=== PATIENT | female | born 1940 | race Caucasian/White ===

== ENCOUNTER 2018-06-16 14:41 | Emergency (ER) | payer OTHER ==
[2018-06-16] MEDS ORDERED: AMLODIPINE 5 MG TAB ONE (15:24)
[2018-06-16] MEDS ORDERED: DIAZEPAM 2 MG TABLET ONE (15:24)
[2018-06-16] MEDS ORDERED: OXYMETAZOLINE HCL 0.05% 15ML NAS ONE (15:30)
[2018-06-16 15:37] LABS: Hematocrit 41.3 % (36.0-45.0); MCH 29.9 pg (27.0-35.0); MCV 88.6 fL (80-100); MPV 8.3 fL (7.6-11.3); Protime INR 1.07; RBC Red Blood Cell Count 4.66 M/uL (3.86-4.86)
[2018-06-16] MEDS ORDERED: LIDOCAINE VISCOUS 2% SOLN 15 ML UDC ONE (15:58)
--- NOTE | 2018-06-16 16:53 | ER ---
Nurse's Notes [facility] Name: Angeline Méndez Age: 78 yrs Sex: Female : 1940 Arrival Date: 06/16/2018 Time: 14:44 Bed 16 Private MD: Andriy Harrison Diagnosis: Epistaxis Presentation: 06/16 14:45 Presenting complaint: Patient states: Reports nose bleeding from right side since 1100 jl7 yesterday. Went to the [facility] ER at 0100 this morning and was dischared after putting some coagulant up there, it started bleeding again about an hour ago and hasn't stopped. Transition of care: patient was not received from another setting of care. Onset of symptoms was June 16, 2018 at 13:30. Risk Assessment: Do you want to hurt yourself or someone else? Patient reports no desire to harm self or others. Initial Sepsis Screen: Does the patient meet any 2 criteria? No. Patient's initial sepsis screen is negative. Does the patient have a suspected source of infection? No. Patient's initial sepsis screen is negative. Care prior to arrival: None. 14:45 Method Of Arrival: Ambulatory [facility] 14:45 Acuity: ROBERT 3 jl7 Triage Assessment: 14:49 General: Appears in no apparent distress. uncomfortable, Behavior is cooperative, jl7 anxious. Pain: Complains of pain in right nostril Pain currently is 1 out of 10 on a pain scale. Quality of pain is described as burning. EENT: Nares with bleeding noted on right. Neuro: Level of Consciousness is awake, alert, obeys commands, Oriented to person, place, time, situation. Cardiovascular: Patient's skin is warm and dry. Respiratory: Airway is patent Respiratory effort is even, unlabored, Respiratory pattern is regular, symmetrical. Derm: Skin is pink, warm \T\ dry. 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 - Social history:: Smoking status: Patient uses tobacco products, smokes one pack cigarettes per day. Patient/guardian denies using alcohol, street drugs, The patient lives with family. - Ebola Screening: : No symptoms or risks identified at this time. - Family history:: not pertinent, pertinent for. - Hospitalizations: : No recent hospitalization is reported. Screenin:49 Abuse screen: Denies threats or abuse. Nutritional screening: No deficits noted. ls4 Tuberculosis screening: No symptoms or risk factors identified. Fall Risk No fall in past 12 months (0 pts). Secondary diagnosis (15 points) impaired mobility, No IV (0 pts). Ambulatory Aid-. Assessment: 14:01 General: Appears distressed, uncomfortable, slender, Behavior is agitated, anxious, ls4 fussy. 14:01 Pain: Denies pain. Neuro: No deficits noted. Cardiovascular: Denies chest pain, ls4 diaphoresis, fatigue, lightheadedness, nausea. Respiratory: Airway is patent Respiratory effort is even, unlabored. Musculoskeletal: No deficits noted. 14:01 EENT: Nares with drainage noted with bleeding noted bilaterally. ls4 15:00 Reassessment: No changes from previously documented assessment. ls4 15:00 EENT: Nares with drainage noted with bleeding noted on right on left. ls4 17:21 EENT: Nares with bleeding noted on right on left. ls4 17:22 EENT: rhino rocket inserted by Pt continures to cough and spit up blood. skin care ls4 done. ice chips given. warm blankets given. Pt reassured. family at bedside. 18:35 Reassessment: Patient states symptoms have improved. bleeding controlled. pt less ls4 anxious. ems report given. family notified that pt was leaving. vss. Vital Signs: 14:49 BP 192 / 102; Pulse 102; Resp 16 S; Temp 98.1(TE); Pulse Ox 100% on R/A; Weight 52.16 jl7 kg (R); Pain 1/10; 16:00 BP 163 / 87; Pulse 104; Resp 16; Pulse Ox 99% on R/A; Pain 0/10; ls4 17:18 BP 168 / 90; Pulse 99; Resp 16; Pulse Ox 99% on R/A; Pain 0/10; ls4 18:24 BP 155 / 85; Pulse 88; Resp 16; Pulse Ox 99% ; Pain 3/10; ls4 ED Course: 14:44 Patient arrived in ED. sb2 14:44 Andriy Harrison MD is Private Physician. sb2 14:48 Triage completed. jl7 14:49 Arm band placed on right wrist. jl7 14:49 Patient has correct armband on for positive identification. Bed in low position. Side ls4 rails up X 1. 14:51 Saeid Nichols MD is Attending Physician. ma2 15:13 Moira Vick, RN is Primary Nurse. ls4 15:48 PT-INR Sent. ls4 15:48 CBC w/o diff Sent. ls4 17:12 No provider procedures requiring assistance completed. ls4 18:20 Inserted saline lock: 22 gauge in left forearm, using aseptic technique. ls4 Administered Medications: 15:20 Drug: Afrin Drops (0.05 %) 1 sprays Route: Intranasal; Site: both nares; ls4 16:35 Follow up: Response: No adverse reaction ls4 15:20 Drug: Norvasc 10 mg Route: PO; ls4 16:01 Follow up: Response: No adverse reaction ls4 15:20 Drug: Valium 2 mg Route: PO; ls4 16:01 Follow up: Response: No adverse reaction; Anxiety unchanged ls4 Outcome: 16:52 ER care complete, transfer ordered by . ma2 18:25 Transferred Transfer form completed. Note: report to Chuy TRUJILLO ls4 18:25 Transferred by ground EMS to [facility]. 18:25 Condition: stable 18:58 Patient left the ED. ls4 Signatures: Leonor Lopez RN RN jl7 Saeid Nichols MD MD id2 Sherry Ngo 2 Moira Vick, RN RN ls4 Corrections: (The following items were deleted from the chart) 17:21 14:01 General: Appears distressed, uncomfortable, slender, Behavior is agitated, ls4 anxious, fussy, ls4 17:22 14:01 General: Appears distressed, uncomfortable, slender, Behavior is agitated, ls4 anxious, fussy, ls4
--- NOTE | 2018-06-16 16:53 | EDPHYS ---
Physician Documentation [facility] Name: Angeline Méndez Age: 78 yrs Sex: Female : 1940 Arrival Date: 06/16/2018 Time: 14:44 Bed 16 Private MD: Andriy Harrison ED Physician Saeid Nichols HPI: 06/16 15:06 This 78 yrs old Female presents to ER via Ambulatory with complaints of Nose ma2 Bleed. 15:06 The patient presents with a nose bleed. Onset: The symptoms/episode began/occurred ma2 suddenly, 1 hour(s) ago. Associated signs and symptoms: Pertinent positives: bleeding, Pertinent negatives: blurred vision, fever, lightheadedness, rhinorrhea. Severity of symptoms: At their worst the symptoms were mild in the emergency department the symptoms have resolved in er. The patient has not experienced similar symptoms in the past. 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 - Social history:: Smoking status: Patient uses tobacco products, smokes one pack cigarettes per day. Patient/guardian denies using alcohol, street drugs, The patient lives with family. - Ebola Screening: : No symptoms or risks identified at this time. - Family history:: not pertinent, pertinent for. - Hospitalizations: : No recent hospitalization is reported. ROS: 15:06 Constitutional: Negative for fever, chills, and weight loss, Cardiovascular: Negative ma2 for chest pain, palpitations, and edema, Respiratory: Negative for shortness of breath, cough, wheezing, and pleuritic chest pain, Abdomen/GI: Negative for abdominal pain, nausea, diarrhea, and constipation, MS/Extremity: Negative for injury and deformity, Skin: Negative for injury, rash, and discoloration. 15:06 ENT: Positive for nose bleed, Negative for ear pain, Gum pain hearing loss, sinus congestion, dental pain, acute changes. 15:06 All other systems are negative. Exam: 15:06 Constitutional: This is a well developed, well nourished patient who is awake, alert, ma2 and in no acute distress. Chest/axilla: Normal chest wall appearance and motion. Nontender with no deformity. No lesions are appreciated. Cardiovascular: Regular rate and rhythm with a normal S1 and S2. No gallops, murmurs, or rubs. Normal PMI, no JVD. No pulse deficits. Respiratory: Lungs have equal breath sounds bilaterally, clear to auscultation and percussion. No rales, rhonchi or wheezes noted. No increased work of breathing, no retractions or nasal flaring. Female : Normal external genitalia. Neuro: Awake and alert, GCS 15, oriented to person, place, time, and situation. Cranial nerves II-XII grossly intact. Motor strength 5/5 in all extremities. Sensory grossly intact. Cerebellar exam normal. Normal gait. Psych: Awake, alert, with orientation to person, place and time. Behavior, mood, and affect are within normal limits. 15:06 ENT: Nose: External nose: no obvious acute abnormality, Nasal septum: no septal hematoma appreciated, bleeding, is not appreciated, clotted blood, in both nares. Vital Signs: 14:49 BP 192 / 102; Pulse 102; Resp 16 S; Temp 98.1(TE); Pulse Ox 100% on R/A; Weight 52.16 jl7 kg (R); Pain 1/10; 16:00 BP 163 / 87; Pulse 104; Resp 16; Pulse Ox 99% on R/A; Pain 0/10; ls4 17:18 BP 168 / 90; Pulse 99; Resp 16; Pulse Ox 99% on R/A; Pain 0/10; ls4 18:24 BP 155 / 85; Pulse 88; Resp 16; Pulse Ox 99% ; Pain 3/10; ls4 MDM: 14:51 Patient medically screened. ma2 15:06 Differential diagnosis: nasal fracture, trauma, sinusitis, epistaxis r/t trauma, ma2 spontaneous epistaxis. Data reviewed: vital signs, nurses notes. Counseling: I had a detailed discussion with the patient and/or guardian regarding: the historical points, exam findings, and any diagnostic results supporting the discharge/admit diagnosis, the presence of at least one elevated blood pressure reading (>120/80) during this emergency department visit, the need for outpatient follow up. Response to treatment: the patient's symptoms have resolved after treatment. 16:50 ED course: anterior packing placed,, still have posterior bleeding.. will need transfer ma2 for higher level of care as ENT not available in our hospital.. accecpted by dr. baez ENT and Dr. Rose hospitalist. 06/16 15:09 Order name: CBC w/o diff [facility] 06/16 15:09 Order name: PT-INR [facility] 06/16 15:38 Order name: CBC without Diff; Complete Time: 16:41 EDMS 06/16 15:38 Order name: Protime (+INR); Complete Time: 16:41 EDMS Administered Medications: 15:20 Drug: Afrin Drops (0.05 %) 1 sprays Route: Intranasal; Site: both nares; ls4 16:35 Follow up: Response: No adverse reaction ls4 15:20 Drug: Norvasc 10 mg Route: PO; ls4 16:01 Follow up: Response: No adverse reaction ls4 15:20 Drug: Valium 2 mg Route: PO; ls4 16:01 Follow up: Response: No adverse reaction; Anxiety unchanged ls4 Disposition: 06/16/18 16:52 Transfer ordered to [facility]. Diagnosis is Epistaxis. - Reason for transfer: Higher level of care. - Accepting physician is [facility]. - Condition is Stable. - Problem is new. - Symptoms are unchanged. Signatures: Dispatcher [employer] EDLeonor Nash RN RN jl7 Saeid Nichols MD MD ma2 Moira Vick RN RN ls4 Corrections: (The following items were deleted from the chart) 18:58 16:52 06/16/2018 16:52 Transfer ordered to [facility]. Diagnosis is ls4 Epistaxis. Reason for transfer: Higher level of care. Accepting physician is [facility]. Condition is Stable. Problem is new. Symptoms are unchanged. ma2
[2018-06-16 19:44] VITALS: TEMP 98.1
[2018-06-16 19:45] VITALS: O2SAT 99
[2018-06-16 19:48] VITALS: BP 155/85
== END 2018-06-16 18:58 | disposition short-term general hospital (02) ==
LOC: ER 14:41
DX: R04.0 Epistaxis (principal); D09.8 Carcinoma in situ of other specified sites; F17.210 Nicotine dependence, cigarettes, uncomplicated; Z88.0 Allergy status to penicillin
CPT/HCPCS: 36415; 85027; 85610; 99285

== ENCOUNTER 2019-08-05 06:25 | Day surgery (SDC) | payer OTHER ==
[~2019-08-05 06:25] MED LIST: CLINDAMYCIN INJ 300 MG in NA CHLORIDE 0.9% 50 ML IV SCH
--- OUTSIDE RECORDS SUMMARY | 2019-08-05 06:28 | XMS REPORT ---
:1940 [facility] [address] [place] [address] Care Team Providers Name Role Phone PREETI TENORIO Unavailable Unavailable Payers Payer Name Policy Type Policy Number Effective Date Expiration Date Problems This patient has no known problems. Allergies, Adverse Reactions, Alerts Allergy Name Allergy Status Severity Reaction(s) Onset Inactive Treating Comments Type Date Date Clinician Penicillins DA Active SV 2018-05 00:00:0 0 Medications This patient has no known medications. Results Test Description Test Time Test Comments Text Results Atomic Results Result Comments MAGNESIUM 2018-06-18 05:29:00 Test Item Value Reference Range Comments MAGNESIUM (BEAKER) (test iiep=611) 2.3 mg/dL 1.6-2.6 BASIC METABOLIC [id number] 05:29:00 Test Item Value Reference Range Comments SODIUM (BEAKER) (test 138 meq/L 136-145 mtdd=334) POTASSIUM (BEAKER) (test 4.2 meq/L 3.5-5.1 rfpw=861) CHLORIDE (BEAKER) (test 104 meq/L 98-107 eyvq=246) CO2 (BEAKER) (test 26 meq/L 22-29 vdml=324) BLOOD UREA NITROGEN 13 mg/dL 7-21 (BEAKER) (test mjoa=538) CREATININE (BEAKER) (test 0.83 mg/dL 0.57-1.25 peew=312) GLUCOSE RANDOM (BEAKER) 94 mg/dL 70-105 (test hndv=758) CALCIUM (BEAKER) (test 9.4 mg/dL 8.4-10.2 cjve=411) EGFR (BEAKER) (test 66 mL/min/1.73 sq m ESTIMATED GFR IS NOT ngfp=0950) ACCURATE CREATININE CLEARANCE IN PREDICTING GLOMERULAR FILTRATION RATE. ESTIMATED GFR IS NOT APPLICABLE FOR DIALYSIS PATIENTS. 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 Technique: Contiguous axial, sagittal, and coronal images through the paranasal sinuses withoutcontrast. This exam was performed according to the departmental dose optimization program which includes automated exposure control, adjustment of the mA and/or kV according to the patient size, and/oruse of an iterative reconstruction technique. Comparisons: None Findings:Asymmetric soft tissue overthe right nares may represent scar tissue from reported basal cell carcinoma excision, correlate with physical exam findings as underlying recurrent basal cell carcinoma cannot be excluded. The frontal sinuses and frontal sinus drainage pathways are patent. Mild mucosal thickening in the anterior ethmoid air cells. Mild mucosal thickening in the bilateral sphenoid sinuses. The left sphenoethmoid recess is patent. There is mild mucosal thickening in the right sphenoethmoid recess. Hyperdense secretions layering within the bilateral maxillary sinuses which is consistent with history of recent epistaxis. The left ostiomeatal complex is patent. There is soft tissue in the region of the right infundibulum and ostiomeatal unit. There is packing material within the right anterior narrowing and nasalcavity. With hyperdense secretions layering in the posterior right nasal cavity extending into the right nasopharynx favored to be related to clot from recent epistaxis. The nasal septum is mildly deviated to the right with a right-sided nasal spur. The parapharyngeal spaces are clear. No pathologically enlarged visualized cervical lymph nodes. The nasopharynx is otherwise unremarkable. The mastoid air cells are clear. The retro-orbital soft tissues and visualized brain parenchyma do not demonstrateacute abnormality. Intraorbital contents are unremarkable. Visualized cervical and intracranial vasculature is patent. Degenerative changes of the left temporomandibular joint. Impression: Asymmetric soft tissue over the right nares may represent scar tissue from reported basal cell carcinoma excision, correlate with physical exam findings. Scattered pansinus mucosal thickening as above. Hyperdense layering secretions within the bilateral maxillary sinuses, nasal cavity and nasopharynx, consistent with reported history of epistaxis. No suspicious nasopharyngeal or nasal cavity lesion is identified. No pathologically enlarged cervical lymph nodes. Signed: Jany Love MDReport Verified Date/Time: 06/17/2018 05: 42:34 Reading Location: [address] Transitional Reading Room [id number] 05:36:00 Test Item Value Reference Range Comments MAGNESIUM (BEAKER) (test 2.4 mg/dL 1.6-2.6 Specimen slightly hemolyzed kkqa=311) BASIC METABOLIC [id number] 05:36:00 Test Item Value Reference Range Comments SODIUM (BEAKER) (test 134 meq/L 136-145 slzb=233) POTASSIUM (BEAKER) (test 4.0 meq/L 3.5-5.1 Specimen slightly rnqz=046) hemolyzed CHLORIDE (BEAKER) (test 102 meq/L 98-107 ekeq=165) CO2 (BEAKER) (test 24 meq/L 22-29 zhqo=453) BLOOD UREA NITROGEN 15 mg/dL 7-21 (BEAKER) (test jywv=742) CREATININE (BEAKER) (test 0.71 mg/dL 0.57-1.25 Specimen slightly oioz=100) hemolyzed GLUCOSE RANDOM (BEAKER) 98 mg/dL 70-105 (test akcl=246) CALCIUM (BEAKER) (test 9.3 mg/dL 8.4-10.2 gncw=875) EGFR (BEAKER) (test 80 mL/min/1.73 sq m ESTIMATED GFR IS NOT linr=1631) ACCURATE CREATININE CLEARANCE IN PREDICTING GLOMERULAR FILTRATION RATE. ESTIMATED GFR IS NOT APPLICABLE FOR DIALYSIS PATIENTS. CBC W/PLT COUNT & AUTO [id number] 05:13:00 Test Item Value Reference Range Comments WHITE BLOOD CELL COUNT (BEAKER) (test pehr=109) 6.3 K/ L 3.5-10.5 RED BLOOD CELL COUNT (BEAKER) (test adsh=482) 4.18 M/ L 3.93-5.22 HEMOGLOBIN (BEAKER) (test jgit=680) 12.0 GM/DL 11.2-15.7 HEMATOCRIT (BEAKER) (test ucpf=075) 37.5 % 34.1-44.9 MEAN CORPUSCULAR VOLUME (BEAKER) (test ypud=542) 89.7 fL 79.4-94.8 MEAN CORPUSCULAR HEMOGLOBIN (BEAKER) (test 28.7 pg 25.6-32.2 ccxg=195) MEAN CORPUSCULAR HEMOGLOBIN CONC (BEAKER) (test 32.0 GM/DL 32.2-35.5 xgtt=263) RED CELL DISTRIBUTION WIDTH (BEAKER) (test 13.5 % 11.7-14.4 glnr=792) PLATELET COUNT (BEAKER) (test lesk=727) 239 K/CU MM 150-450 MEAN PLATELET VOLUME (BEAKER) (test kziq=702) 11.2 fL 9.4-12.3 NUCLEATED RED BLOOD CELLS (BEAKER) (test 0 /100 WBC 0-0 fluk=445) NEUTROPHILS RELATIVE PERCENT (BEAKER) (test 64 % sdre=302) LYMPHOCYTES RELATIVE PERCENT (BEAKER) (test 26 % glyy=840) MONOCYTES RELATIVE PERCENT (BEAKER) (test 8 % tzrq=885) EOSINOPHILS RELATIVE PERCENT (BEAKER) (test 1 % gplh=348) BASOPHILS RELATIVE PERCENT (BEAKER) (test 1 % klpb=627) NEUTROPHILS ABSOLUTE COUNT (BEAKER) (test 4.01 K/ L 1.56-6.13 uusz=401) LYMPHOCYTES ABSOLUTE COUNT (BEAKER) (test 1.64 K/ L 1.18-3.74 mddv=460) MONOCYTES ABSOLUTE COUNT (BEAKER) (test 0.51 K/ L 0.24-0.36 clwp=995) EOSINOPHILS ABSOLUTE COUNT (BEAKER) (test 0.08 K/ L 0.04-0.36 sdcc=636) BASOPHILS ABSOLUTE COUNT (BEAKER) (test 0.04 K/ L 0.01-0.08 ogwy=417) IMMATURE GRANULOCYTES-RELATIVE PERCENT (BEAKER) 0 % 0-1 (test nrua=4148) [id number] 23:42:00 Test Item Value Reference Range Comments PROTIME (BEAKER) (test yedu=495) 13.9 seconds 11.7-14.7 INR (BEAKER) (test gjim=077) 1.1 <=5.9 PARTIAL THROMBOPLASTIN TIME (BEAKER) (test 29.0 seconds 22.5-36.0 xauv=919) RECOMMENDED COUMADIN/WARFARIN INR THERAPY RANGESSTANDARD DOSE: 2.0 - 3.0 Includes: PROPHYLAXIS forvenous thrombosis, systemic embolization; TREATMENT for venous thrombosis and/or pulmonary embolus.HIGH RISK: Target INR is 2.5-3.5 for patients with mechanical heart valves.BASIC METABOLIC [id number] 23:38: 00 Test Item Value Reference Range Comments SODIUM (BEAKER) (test 137 meq/L 136-145 mxim=373) POTASSIUM (BEAKER) (test 3.9 meq/L 3.5-5.1 jouc=146) CHLORIDE (BEAKER) (test 102 meq/L 98-107 xpus=563) CO2 (BEAKER) (test 29 meq/L 22-29 worv=567) BLOOD UREA NITROGEN 15 mg/dL 7-21 (BEAKER) (test hkmb=157) CREATININE (BEAKER) (test 0.80 mg/dL 0.57-1.25 tgpe=760) GLUCOSE RANDOM (BEAKER) 138 mg/dL 70-105 (test pomi=842) CALCIUM (BEAKER) (test 9.5 mg/dL 8.4-10.2 kiex=980) EGFR (BEAKER) (test 69 mL/min/1.73 sq m ESTIMATED GFR IS NOT eids=3150) ACCURATE CREATININE CLEARANCE IN PREDICTING GLOMERULAR FILTRATION RATE. ESTIMATED GFR IS NOT APPLICABLE FOR DIALYSIS PATIENTS. CBC W/PLT COUNT & AUTO [id number] 23:24:00 Test Item Value Reference Range Comments WHITE BLOOD CELL COUNT (BEAKER) (test spyd=175) 6.6 K/ L 3.5-10.5 RED BLOOD CELL COUNT (BEAKER) (test dwtt=634) 4.11 M/ L 3.93-5.22 HEMOGLOBIN (BEAKER) (test sdav=901) 12.1 GM/DL 11.2-15.7 HEMATOCRIT (BEAKER) (test ebjk=929) 37.3 % 34.1-44.9 MEAN CORPUSCULAR VOLUME (BEAKER) (test nbcs=388) 90.8 fL 79.4-94.8 MEAN CORPUSCULAR HEMOGLOBIN (BEAKER) (test 29.4 pg 25.6-32.2 abqn=209) MEAN CORPUSCULAR HEMOGLOBIN CONC (BEAKER) (test 32.4 GM/DL 32.2-35.5 rdnh=312) RED CELL DISTRIBUTION WIDTH (BEAKER) (test 13.3 % 11.7-14.4 yarw=728) PLATELET COUNT (BEAKER) (test wxkv=755) 223 K/CU MM 150-450 MEAN PLATELET VOLUME (BEAKER) (test husd=344) 10.3 fL 9.4-12.3 NUCLEATED RED BLOOD CELLS (BEAKER) (test 0 /100 WBC 0-0 ybei=787) NEUTROPHILS RELATIVE PERCENT (BEAKER) (test 64 % twwi=968) LYMPHOCYTES RELATIVE PERCENT (BEAKER) (test 26 % bnku=804) MONOCYTES RELATIVE PERCENT (BEAKER) (test 8 % ysre=761) EOSINOPHILS RELATIVE PERCENT (BEAKER) (test 1 % mqdw=335) BASOPHILS RELATIVE PERCENT (BEAKER) (test 1 % bcsa=680) NEUTROPHILS ABSOLUTE COUNT (BEAKER) (test 4.25 K/ L 1.56-6.13 kthp=994) LYMPHOCYTES ABSOLUTE COUNT (BEAKER) (test 1.74 K/ L 1.18-3.74 sarg=598) MONOCYTES ABSOLUTE COUNT (BEAKER) (test 0.54 K/ L 0.24-0.36 wzff=618) EOSINOPHILS ABSOLUTE COUNT (BEAKER) (test 0.07 K/ L 0.04-0.36 vcvq=501) BASOPHILS ABSOLUTE COUNT (BEAKER) (test 0.03 K/ L 0.01-0.08 uxzp=869) IMMATURE GRANULOCYTES-RELATIVE PERCENT (BEAKER) 0 % 0-1 (test aktz=8439)
[2019-08-05] MEDS ORDERED: Ringers Lactate 1,000 ML IV ONE ×2 (06:47→09:11)
[2019-08-05] MEDS ORDERED: propofoL 200 MG/20 ML VIAL IV ONE (07:19)
[2019-08-05] MEDS ORDERED: LIDOCAINE 1% W/EPI 1:100,000 MDV 20 ML VIAL ONE (07:20)
[2019-08-05] MEDS ORDERED: OXYMETAZOLINE HCL 0.05% 15ML NAS ONE (07:20)
[2019-08-05] MEDS ORDERED: BACITRACIN OINTMENT 15 GM TUBE TOP ONE (07:20)
[2019-08-05] MEDS ORDERED: MIDAZOLAM HCL 2 MG/2 ML INJ ONE (07:20)
[2019-08-05] MEDS ORDERED: LIDOCAINE 2% MPF 5 ML VIAL ONE (07:20)
[2019-08-05] MEDS ORDERED: NITROGLYCERIN 1 GM PKT TD ONE (07:20)
[2019-08-05] MEDS ORDERED: FENTANYL CITR 100 MCG/2 ML ONE ×2 (07:20→08:55)
[2019-08-05] MEDS ORDERED: MINERAL OIL, LITE 10 ML VIAL ONE (07:20)
[2019-08-05] MEDS ORDERED: ROCURONIUM 50 MG/5 ML VIAL IV ONE (07:24)
[2019-08-05] MEDS ORDERED: SUCCINYLCHOLINE 20 MG/ML (10 ML) IV ONE (07:26)
[2019-08-05] MEDS ORDERED: EPHEDRINE SULF 50 MG/ML VIAL ONE (07:57)
[2019-08-05] MEDS ORDERED: ONDANSETRON 4 MG/2 ML VIAL ONE (08:34)
[2019-08-05] MEDS ORDERED: dexAMETHasone 10 MG/ML VIAL ONE (08:34)
[2019-08-05] MEDS ORDERED: dexAMETHasone 4 MG/ML VIAL ONE (08:36)
[2019-08-05] MEDS ORDERED: Phenylephrine HCl 10 MG/ML 1 ML VIAL ONE (08:59)
[2019-08-05] MEDS ORDERED: NS 0.9% VIAL 10 ML ONE (09:00)
[2019-08-05 10:43] VITALS: O2SAT 98
[2019-08-05 13:36] VITALS: BP 120/58; TEMP 97.3
== END 2019-08-05 11:49 | disposition home or self-care (01) ==
LOC: OR 06:25
PROVIDERS: ATTEND Plastic Surgery
PROC: 0JB10ZZ Excision of Face Subcutaneous Tissue and Fascia, Open Approach (ICD-10-PCS; 2019-08-05)
PROC: 0JR107Z Replacement of Face Subcutaneous Tissue and Fascia with Autologous Tissue Substitute, Open Approach (ICD-10-PCS; principal; 2019-08-05 07:30)
DX: T81.89XA Other complications of procedures, not elsewhere classified, initial encounter (principal); S01.20XA Unspecified open wound of nose, initial encounter; F17.200 Nicotine dependence, unspecified, uncomplicated
CPT/HCPCS: 15760; J2704; J0330; J2370; J2250; J3010; J7120 ×2; J2405; J1100

== ENCOUNTER 2019-09-16 06:30 | Day surgery (SDC) | payer OTHER ==
--- OUTSIDE RECORDS SUMMARY | 2019-09-16 06:32 | XMS REPORT ---
:1940 [facility] Address [address] [place] [address] Care Team Providers Name Role Phone PREETI [...] Value Reference Range Comments MAGNESIUM (BEAKER) (test wfvu=981) 2.3 mg/dL 1.6-2.6 BASIC METABOLIC [id number] 05:29:00 Test Item Value Reference Range Comments SODIUM (BEAKER) (test 138 meq/L 136-145 egnv=402) POTASSIUM (BEAKER) (test 4.2 meq/L 3.5-5.1 ekha=278) CHLORIDE (BEAKER) (test 104 meq/L 98-107 rcmd=253) CO2 (BEAKER) (test 26 meq/L 22-29 iuoj=603) BLOOD UREA NITROGEN 13 mg/dL 7-21 (BEAKER) (test ybre=549) CREATININE (BEAKER) (test 0.83 mg/dL 0.57-1.25 alrb=164) GLUCOSE RANDOM (BEAKER) 94 mg/dL 70-105 (test rxgd=404) CALCIUM (BEAKER) (test 9.4 mg/dL 8.4-10.2 tsou=836) EGFR (BEAKER) (test 66 mL/min/1.73 sq m ESTIMATED GFR IS NOT yket=1984) ACCURATE CREATININE CLEARANCE IN PREDICTING GLOMERULAR FILTRATION RATE. ESTIMATED GFR IS NOT APPLICABLE FOR DIALYSIS PATIENTS. CT, SINUS, WITH IV [id number] 05:42:00FINAL REPORT CT Sinus Clinical History: History [...] Verified Date/Time: 06/17/2018 05: 42:34 Reading Location: [address] Transitional Reading Room [id number] 05:36:00 Test Item Value Reference Range Comments MAGNESIUM (BEAKER) (test 2.4 mg/dL 1.6-2.6 Specimen slightly hemolyzed xnhp=873) BASIC METABOLIC [id number] 05:36:00 Test Item Value Reference Range Comments SODIUM (BEAKER) (test 134 meq/L 136-145 tiji=515) POTASSIUM (BEAKER) (test 4.0 meq/L 3.5-5.1 Specimen slightly pjwh=263) hemolyzed CHLORIDE (BEAKER) (test 102 meq/L 98-107 dqek=846) CO2 (BEAKER) (test 24 meq/L 22-29 wzkw=500) BLOOD UREA NITROGEN 15 mg/dL 7-21 (BEAKER) (test smbq=964) CREATININE (BEAKER) (test 0.71 mg/dL 0.57-1.25 Specimen slightly yhnr=808) hemolyzed GLUCOSE RANDOM (BEAKER) 98 mg/dL 70-105 (test tyir=377) CALCIUM (BEAKER) (test 9.3 mg/dL 8.4-10.2 oymk=988) EGFR (BEAKER) (test 80 mL/min/1.73 sq m ESTIMATED GFR IS NOT kykd=9065) ACCURATE CREATININE CLEARANCE IN PREDICTING GLOMERULAR FILTRATION RATE. ESTIMATED GFR IS NOT APPLICABLE FOR DIALYSIS PATIENTS. CBC W/PLT COUNT & AUTO [id number] 05:13:00 Test Item Value Reference Range Comments WHITE BLOOD CELL COUNT (BEAKER) (test fkpy=034) 6.3 K/ L 3.5-10.5 RED BLOOD CELL COUNT (BEAKER) (test urvm=882) 4.18 M/ L 3.93-5.22 HEMOGLOBIN (BEAKER) (test icmd=567) 12.0 GM/DL 11.2-15.7 HEMATOCRIT (BEAKER) (test ihaq=752) 37.5 % 34.1-44.9 MEAN CORPUSCULAR VOLUME (BEAKER) (test gnmq=642) 89.7 fL 79.4-94.8 MEAN CORPUSCULAR HEMOGLOBIN (BEAKER) (test 28.7 pg 25.6-32.2 eegf=200) MEAN CORPUSCULAR HEMOGLOBIN CONC (BEAKER) (test 32.0 GM/DL 32.2-35.5 ftkk=648) RED CELL DISTRIBUTION WIDTH (BEAKER) (test 13.5 % 11.7-14.4 zqmc=014) PLATELET COUNT (BEAKER) (test ykkz=302) 239 K/CU MM 150-450 MEAN PLATELET VOLUME (BEAKER) (test frzm=657) 11.2 fL 9.4-12.3 NUCLEATED RED BLOOD CELLS (BEAKER) (test 0 /100 WBC 0-0 jbaz=469) NEUTROPHILS RELATIVE PERCENT (BEAKER) (test 64 % umqk=954) LYMPHOCYTES RELATIVE PERCENT (BEAKER) (test 26 % iesq=114) MONOCYTES RELATIVE PERCENT (BEAKER) (test 8 % jhou=542) EOSINOPHILS RELATIVE PERCENT (BEAKER) (test 1 % wlct=757) BASOPHILS RELATIVE PERCENT (BEAKER) (test 1 % xixl=403) NEUTROPHILS ABSOLUTE COUNT (BEAKER) (test 4.01 K/ L 1.56-6.13 fotl=113) LYMPHOCYTES ABSOLUTE COUNT (BEAKER) (test 1.64 K/ L 1.18-3.74 cgcm=400) MONOCYTES ABSOLUTE COUNT (BEAKER) (test 0.51 K/ L 0.24-0.36 agwz=205) EOSINOPHILS ABSOLUTE COUNT (BEAKER) (test 0.08 K/ L 0.04-0.36 mwrw=584) BASOPHILS ABSOLUTE COUNT (BEAKER) (test 0.04 K/ L 0.01-0.08 tkcu=295) IMMATURE GRANULOCYTES-RELATIVE PERCENT (BEAKER) 0 % 0-1 (test vteb=5382) [id number] 23:42:00 Test Item Value Reference Range Comments PROTIME (BEAKER) (test gltq=655) 13.9 seconds 11.7-14.7 INR (BEAKER) (test eieg=682) 1.1 <=5.9 PARTIAL THROMBOPLASTIN TIME (BEAKER) (test 29.0 seconds 22.5-36.0 rkqj=127) RECOMMENDED COUMADIN/WARFARIN INR THERAPY RANGESSTANDARD DOSE: 2.0 - 3.0 Includes: PROPHYLAXIS forvenous thrombosis, systemic embolization; TREATMENT for venous thrombosis and/or pulmonary embolus.HIGH RISK: Target INR is 2.5-3.5 for patients with mechanical heart valves.BASIC METABOLIC [id number] 23:38: 00 Test Item Value Reference Range Comments SODIUM (BEAKER) (test 137 meq/L 136-145 zldk=856) POTASSIUM (BEAKER) (test 3.9 meq/L 3.5-5.1 zqjk=002) CHLORIDE (BEAKER) (test 102 meq/L 98-107 ctyy=465) CO2 (BEAKER) (test 29 meq/L 22-29 ogyw=022) BLOOD UREA NITROGEN 15 mg/dL 7-21 (BEAKER) (test ubhi=362) CREATININE (BEAKER) (test 0.80 mg/dL 0.57-1.25 ggwn=603) GLUCOSE RANDOM (BEAKER) 138 mg/dL 70-105 (test zjuf=781) CALCIUM (BEAKER) (test 9.5 mg/dL 8.4-10.2 phkn=021) EGFR (BEAKER) (test 69 mL/min/1.73 sq m ESTIMATED GFR IS NOT ukgm=5596) ACCURATE CREATININE CLEARANCE IN PREDICTING GLOMERULAR FILTRATION RATE. ESTIMATED GFR IS NOT APPLICABLE FOR DIALYSIS PATIENTS. CBC W/PLT COUNT & AUTO [id number] 23:24:00 Test Item Value Reference Range Comments WHITE BLOOD CELL COUNT (BEAKER) (test hzbl=571) 6.6 K/ L 3.5-10.5 RED BLOOD CELL COUNT (BEAKER) (test igqr=942) 4.11 M/ L 3.93-5.22 HEMOGLOBIN (BEAKER) (test qzce=278) 12.1 GM/DL 11.2-15.7 HEMATOCRIT (BEAKER) (test iaay=440) 37.3 % 34.1-44.9 MEAN CORPUSCULAR VOLUME (BEAKER) (test iaes=613) 90.8 fL 79.4-94.8 MEAN CORPUSCULAR HEMOGLOBIN (BEAKER) (test 29.4 pg 25.6-32.2 hisk=383) MEAN CORPUSCULAR HEMOGLOBIN CONC (BEAKER) (test 32.4 GM/DL 32.2-35.5 yiln=819) RED CELL DISTRIBUTION WIDTH (BEAKER) (test 13.3 % 11.7-14.4 culj=136) PLATELET COUNT (BEAKER) (test gzvg=330) 223 K/CU MM 150-450 MEAN PLATELET VOLUME (BEAKER) (test vhhq=827) 10.3 fL 9.4-12.3 NUCLEATED RED BLOOD CELLS (BEAKER) (test 0 /100 WBC 0-0 ioyj=394) NEUTROPHILS RELATIVE PERCENT (BEAKER) (test 64 % gwvg=165) LYMPHOCYTES RELATIVE PERCENT (BEAKER) (test 26 % pkcr=866) MONOCYTES RELATIVE PERCENT (BEAKER) (test 8 % dlid=589) EOSINOPHILS RELATIVE PERCENT (BEAKER) (test 1 % agxg=057) BASOPHILS RELATIVE PERCENT (BEAKER) (test 1 % dwpw=157) NEUTROPHILS ABSOLUTE COUNT (BEAKER) (test 4.25 K/ L 1.56-6.13 nrcd=378) LYMPHOCYTES ABSOLUTE COUNT (BEAKER) (test 1.74 K/ L 1.18-3.74 uxhw=986) MONOCYTES ABSOLUTE COUNT (BEAKER) (test 0.54 K/ L 0.24-0.36 qrzn=556) EOSINOPHILS ABSOLUTE COUNT (BEAKER) (test 0.07 K/ L 0.04-0.36 vmox=046) BASOPHILS ABSOLUTE COUNT (BEAKER) (test 0.03 K/ L 0.01-0.08 qxdc=826) IMMATURE GRANULOCYTES-RELATIVE PERCENT (BEAKER) 0 % 0-1 (test tbnh=4436)
[2019-09-16] MEDS ORDERED: Ringers Lactate 1,000 ML IV ONE ×2 (06:53→08:26)
[2019-09-16] MEDS ORDERED: LIDOCAINE 2% MPF 5 ML VIAL ONE (07:06)
[2019-09-16] MEDS ORDERED: propofoL 200 MG/20 ML VIAL IV ONE (07:06)
[2019-09-16] MEDS ORDERED: FENTANYL CITR 250 MCG/5 ML ONE (07:06)
[2019-09-16] MEDS ORDERED: ROCURONIUM 50 MG/5 ML VIAL IV ONE (07:07)
[2019-09-16] MEDS ORDERED: CLINDAMYCIN 900MG/D5W 900 MG/50 ML IVPB IV ONE (07:15)
[2019-09-16] MEDS ORDERED: BACITRACIN OINTMENT 15 GM TUBE TOP ONE (07:22)
[2019-09-16] MEDS ORDERED: OXYMETAZOLINE HCL 0.05% 15ML NAS ONE (07:22)
[2019-09-16] MEDS ORDERED: LIDOCAINE 1% W/EPI 1:100,000 MDV 20 ML VIAL ONE (07:22)
[2019-09-16] MEDS ORDERED: BSS OPTHALMIC SOL 15 ML BOT OPTH ONE (07:25)
[2019-09-16] MEDS ORDERED: MIDAZOLAM HCL 2 MG/2 ML INJ ONE (07:25)
[2019-09-16] MEDS ORDERED: NITROGLYCERIN 1 GM PKT TD ONE (07:25)
[2019-09-16] MEDS ORDERED: NS 0.9% VIAL 10 ML ONE (07:48)
[2019-09-16] MEDS ORDERED: LANO/MINERAL OIL/PETRO 3.5 GM ONE (07:51)
[2019-09-16] MEDS ORDERED: EPHEDRINE SULF 50 MG/ML VIAL ONE (08:04)
[2019-09-16] MEDS ORDERED: Phenylephrine HCl 10 MG/ML 1 ML VIAL ONE (08:04)
[2019-09-16] MEDS ORDERED: NS 0.9% VIAL 20 ML ONE (08:06)
[2019-09-16] MEDS ORDERED: ONDANSETRON 4 MG/2 ML VIAL ONE (09:54)
[2019-09-16] MEDS ORDERED: PROMETHAZINE INJ 25 MG/ML AMP ONE (10:25)
[2019-09-16 11:18] VITALS: BP 122/62; TEMP 97.2; O2SAT 97
== END 2019-09-16 11:47 | disposition home or self-care (01) ==
LOC: OR 06:30
PROVIDERS: ATTEND Plastic Surgery
PROC: 08QPXZZ Repair Left Upper Eyelid, External Approach (ICD-10-PCS; 2019-09-16)
PROC: 0H81XZZ Division of Face Skin, External Approach (ICD-10-PCS; 2019-09-16)
PROC: 08BR0ZX Excision of Left Lower Eyelid, Open Approach, Diagnostic (ICD-10-PCS; 2019-09-16)
PROC: 08QRXZZ Repair Left Lower Eyelid, External Approach (ICD-10-PCS; principal; 2019-09-16 07:30)
DX: C44.1292 Squamous cell carcinoma of skin of left lower eyelid, including canthus (principal); Z85.828 Personal history of other malignant neoplasm of skin; I10 Essential (primary) hypertension; J44.9 Chronic obstructive pulmonary disease, unspecified; K21.9 Gastro-esophageal reflux disease without esophagitis; F41.9 Anxiety disorder, unspecified; F17.200 Nicotine dependence, unspecified, uncomplicated; Z88.0 Allergy status to penicillin
CPT/HCPCS: 67875; 15630; 11642; 13152; 13153; 88331; 88332; 88305 ×2; J2704; J2550; J2370; J2250; J3010; J7120 ×2; J2405

== ENCOUNTER → 2023-09-16 | Emergency (ER) | payer OTHER ==
--- NOTE | 2023-09-16 05:07 | EDPHYS ---
Physician Documentation [facility] Name: Angeline Méndez Age: 83 yrs Sex: Female : 1940 Arrival Date: 09/16/2023 Time: 04:24 Bed 13 Private MD: ED Physician Reagan Arenas HPI: 09/16 04:59 This 83 yrs old Other Female presents to ER via Unassigned with complaints of Nose sp4 Bleed. 22:07 Is an 83-year-old female who presents with acute small amount of bleeding from the sp4 right nostril. 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 Patient was putting Aquaphor ointment to the Q-tip into the right nostril when she developed small-volume bleeding. Presentation of bleeding has subsided. . 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 - Social history:: Smoking status: Patient reports the use of cigarette tobacco products, smokes one pack cigarettes per day. - Family history:: not pertinent. ROS: 22:07 Constitutional: Negative for fever, chills, and weight loss, positive epistaxis right sp4 nostril Eyes: Negative for injury, pain, redness, and discharge, 22:07 All other systems are negative, Exam: 22:07 Constitutional: This is a well developed, well nourished patient who is awake, alert, sp4 and in no acute distress. Head/Face: Normocephalic, atraumatic. Eyes: Pupils equal round and reactive to light, extra-ocular motions intact. Lids and lashes normal. Conjunctiva and sclera are not injected. Cornea within normal limits. Periorbital areas with no swelling, redness, or edema. ENT: Nares patent. No nasal discharge, no septal abnormalities noted. There is small amount of blood and blood clots in the right nostril appears to have anterior location, no active epistaxis. Tympanic membranes are normal and external auditory canals are clear. Oropharynx with no redness, swelling, or masses, exudates, or evidence of obstruction, uvula midline. Mucous membranes moist. Neck: Trachea midline, no thyromegaly or masses palpated, and no cervical lymphadenopathy. Supple, full range of motion without nuchal rigidity, or vertebral point tenderness. Chest/axilla: Normal chest wall appearance and motion. Nontender with no deformity. No lesions are appreciated. Cardiovascular: Regular rate and rhythm with a normal S1 and S2. No gallops, murmurs, or rubs. Normal PMI, no JVD. No pulse deficits. Respiratory: Lungs have equal breath sounds bilaterally, clear to auscultation and percussion. No rales, rhonchi or wheezes noted. No increased work of breathing, no retractions or nasal flaring. Abdomen/GI: Soft, with normal bowel sounds. No distension or tympany. No guarding or rebound. No evidence of tenderness throughout. Back: No spinal tenderness. No costovertebral tenderness. Skin: Warm, dry with normal turgor. Normal color with no rashes, no lesions, and no evidence of cellulitis. MS/ Extremity: Pulses equal, no cyanosis. Neurovascular intact. Full, normal range of motion. Neuro: Awake and alert, GCS 15, oriented to person, place, time, and situation. Cranial nerves II-XII grossly intact. Motor strength 5/5 in all extremities. Sensory grossly intact. Psych: Awake, alert, with orientation to person, place and time. Behavior, mood, and affect are within normal limits Vital Signs: 05:13 BP 186 / 101; Pulse 102; Resp 18; Temp 99(TE); Pulse Ox 99% on R/A; oe 05:25 BP 177 / 86; Pulse 82; Resp 17; Pulse Ox 97% ; Pain 0/10; jj7 05:25 Pain Scale: Adult jj7 MDM: 05:06 Patient medically screened. sp4 22:07 Differential diagnosis: foreign body - resolved, foreign body - unresolved, nasal sp4 fracture, trauma, sinusitis, epistaxis r/t trauma, spontaneous epistaxis. Data reviewed: vital signs, nurses notes, old medical records. ED course: Patient does not have any sign of epistaxis at this time. We will advise patient not to put any Q-tips in the nose. Will advise sinus precautions specifically no nose blowing for the next 3 days. Will advised to see ENT physician Dr. Moe. Administered Medications: No medications were administered Disposition Summary: 09/16/23 05:06 Discharge Ordered Problem: new sp4 Symptoms: have improved sp4 Condition: Stable sp4 Diagnosis - Epistaxis sp4 - Acute epistaxis left anterior nostril sp4 Followup: sp4 - With: Jane Moe MD - When: 5 - 6 days - Reason: Recheck today's complaints Discharge Instructions: - Discharge Summary Sheet sp4 - Nosebleed, Adult, [id number] sp4 Forms: - Patient Portal Instructions sp4 Signatures: Skye Vieira RN RN vc1 Reagan Arenas MD MD sp4
--- NOTE | 2023-09-16 05:29 | ER ---
Nurse's Notes [facility] Name: Angeline Méndez Age: 83 yrs Sex: Female : 1940 Arrival Date: 09/16/2023 Time: 04:24 Bed 13 Private MD: Diagnosis: Epistaxis;Acute epistaxis left anterior nostril Presentation: 09/16 05:02 Chief complaint: Patient states: I have a history of nose cancer and I get dried vc1 boogers and use saline I use Aquafor and when I put some in with a q tip my nose started bleeding. Coronavirus screen: Vaccine status: Patient reports receiving the 2nd dose of the covid vaccine. At this time, the client does not indicate any symptoms associated with coronavirus-19. Ebola Screen: Patient negative for fever greater than or equal to 101.5 degrees Fahrenheit, and additional compatible Ebola Virus Disease symptoms Patient denies exposure to infectious person. Patient denies travel to an Ebola-affected area in the 21 days before illness onset. No symptoms or risks identified at this time. Initial Sepsis Screen: Does the patient meet any 2 criteria? No. Patient's initial sepsis screen is negative. Does the patient have a suspected source of infection? No. Patient's initial sepsis screen is negative. Risk Assessment: Do you want to hurt yourself or someone else? Patient reports no desire to harm self or others. Onset of symptoms was September 16, 2023. 05:02 Method Of Arrival: Ambulatory vc1 05:02 Acuity: ROBERT 5 vc1 Triage Assessment: 05:14 General: Appears in no apparent distress. comfortable, Behavior is cooperative. Pain: vc1 Complains of pain in left middle finger Pain does not radiate. Pain currently is 9 out of 10 on a pain scale. Quality of pain is described as pressure, sharp, Pain began suddenly. EENT: No deficits noted. No signs and/or symptoms were reported regarding the EENT system. Neuro: Level of Consciousness is awake, alert, obeys commands, Oriented to person, place, time, situation, Appropriate for age. Cardiovascular: No deficits noted. Respiratory: Airway is patent Respiratory effort is even, unlabored, Respiratory pattern is regular, symmetrical. GI: No deficits noted. No signs and/or symptoms were reported involving the gastrointestinal system. : No deficits noted. No signs and/or symptoms were reported regarding the genitourinary system. Derm: Wound noted left middle finger. Musculoskeletal: No deficits noted. No signs and/or symptoms reported regarding the musculoskeletal system. 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 - Social history:: Smoking status: Patient reports the use of cigarette tobacco products, smokes one pack cigarettes per day. - Family history:: not pertinent. Screenin:15 [facility] ED Fall Risk Assessment (Adult) History of falling in the last 3 months, jj7 including since admission No falls in past 3 months (0 pts) Confusion or Disorientation No (0 pts) Intoxicated or Sedated No (0 pts) Impaired Gait No (0 pts) Mobility Assist Device Used No (0 pt) Altered Elimination No (0 pt) Score/Fall Risk Level 0 - 2 = Low Risk Oriented to surroundings, Maintained a safe environment, Educated pt \T\ family on fall prevention, incl call for assistance when getting out of bed. Abuse screen: Denies threats or abuse. Nutritional screening: No deficits noted. Tuberculosis screening: No symptoms or risk factors identified. Assessment: 05:25 General: Appears in no apparent distress. comfortable, Behavior is calm, cooperative, jj7 appropriate for age. EENT: No deficits noted. Vital Signs: 05:13 BP 186 / 101; Pulse 102; Resp 18; Temp 99(TE); Pulse Ox 99% on R/A; oe 05:25 BP 177 / 86; Pulse 82; Resp 17; Pulse Ox 97% ; Pain 0/10; jj7 05:25 Pain Scale: Adult jj7 ED Course: 04:28 Patient arrived in ED. jj6 04:59 Reagan Arenas MD is Attending Physician. sp4 05:06 Jane Moe MD is Referral Physician. sp4 05:13 Triage completed. vc1 05:13 Arm band placed on right wrist. vc1 05:15 Bed in low position. Call light in reach. Adult w/ patient. Warm blanket given. jj7 05:28 No provider procedures requiring assistance completed. Patient did not have IV access jj7 during this emergency room visit. Administered Medications: No medications were administered Medication: 05:25 VIS not applicable for this client. jj7 Outcome: 05:06 Discharge ordered by . [email or web address] 05:28 Discharged to home ambulatory, with family, richy 05:28 Condition: good 05:28 Discharge instructions given to patient, Instructed on discharge instructions, follow up and referral plans. Demonstrated understanding of instructions, follow-up care, 05:28 Patient left the ED. jj7 Signatures: Zach Bryan Jennifer jj6 Skye Vieira, RN RN vc1 Rhonda Melo RN RN jj7 Reagan Arenas MD MD sp4
[2023-09-16 05:53] VITALS: BP 177/86; TEMP 99; O2SAT 97
== END ==
LOC: ER 04:24
DX: R04.0 Epistaxis (principal); Z85.828 Personal history of other malignant neoplasm of skin; F17.210 Nicotine dependence, cigarettes, uncomplicated; Z88.0 Allergy status to penicillin